=== PATIENT | female | born 1990 | race Caucasian/White ===

== ENCOUNTER 2017-11-12 08:13 | Emergency (ER) | payer OTHER | END 2017-11-12 10:45 | disposition home or self-care (01) | LOC: M ED 08:13 | DX: S16.1XXA Strain of muscle, fascia and tendon at neck level, initial encounter (principal); V49.49XA Driver injured in collision with other motor vehicles in traffic accident, initial encounter; Y92.410 Unspecified street and highway as the place of occurrence of the external cause; Z79.3 Long term (current) use of hormonal contraceptives | CPT/HCPCS: 70450 ==